=== PATIENT | female | born 1965 | race African-American/Black ===

== ENCOUNTER 2016-10-21 23:05 | Emergency (ER) | payer MEDICAID ==
--- NOTE | 2016-10-21 23:20 | NUR ---
CALLED FOR TRIAGE; NO ANSWER
--- NOTE | 2016-10-21 23:46 | NUR ---
CALLED FOR TRIAGE AND STATES "I HAVE AN APPOINTMENT WITH MY DOCTOR IN THE MORNING SO I WILL GO OVER THERE AND SEE HIM".
== END 2016-10-21 23:47 | disposition left against medical advice (07) ==
LOC: ER 23:05
DX: Z53.21 Procedure and treatment not carried out due to patient leaving prior to being seen by health care provider (principal)

== ENCOUNTER 2016-10-31 02:04 | Emergency (ER) | payer MEDICAID ==
--- NOTE | 2016-10-31 02:21 | NUR ---
NOT IN LOBBY FOR TRIAGE.
--- NOTE | 2016-10-31 02:31 | NUR ---
STILL NOT IN LOBBY
--- NOTE | 2016-10-31 02:51 | NUR ---
CALLED AGAIN; NOT IN LOBBY
--- NOTE | 2016-10-31 02:56 | NUR ---
PT NOT IN LOBBY FOR TRIAGE.
--- NOTE | 2016-10-31 03:07 | NUR ---
CALLED AGAIN AND STILL NOT IN LOBBY.
--- NOTE | 2016-10-31 03:18 | NUR ---
PT NOT IN LOBBY
--- NOTE | 2016-10-31 03:30 | NUR ---
STILL NOT IN LOBBY.
== END 2016-10-31 03:37 | disposition left against medical advice (07) ==
LOC: ER 02:07
DX: Z53.21 Procedure and treatment not carried out due to patient leaving prior to being seen by health care provider (principal)

== ENCOUNTER 2016-12-03 13:26 | Emergency (ER) | payer MEDICAID ==
[~2016-12-03] VITALS: Ht 157.5 cm; Wt 74.8 kg
--- NOTE | 2016-12-03 13:50 | NUR ---
PT CAME IN FOR SOB AND MULTIPLE COMPLAINTS. NOTED ANXIOUS. VSS. 99% SAT ON RA SEEN BY MD FOR EVAL. SAFETY AND COMFORT MEASURES PROVIDED. WILL MONITOR.
--- NOTE | 2016-12-03 14:05 | NUR ---
[employer] DISABILITY TEACHER AT FOR BLOOD DRAW.
--- NOTE | 2016-12-03 14:10 | NUR ---
PT STATES MULTIPLE COMPLAINTS/SYMPTOMS AND DEMANDS EXPLANATIONS AND TO BE DIAGNOSED ON THE SPOT. REPORTS THAT "SOMETHING INSIDE OF HER IS CRAWLING AND BLOCKING HER AIRWAY". VSS- SATING AT 100% ROOM AIR. NAD NOTED. MD MADE AWARE OF THE COMPLAINTS. SAFETY MEASURES MAINTAINED.
[2016-12-03 14:19] LABS: BASOPHILS % (AUTO) 0.7 % (0.0-2.0); EOSINOPHILS % (AUTO) 0.9 % (0.0-6.0); HEMATOCRIT 41 % (33-45); HEMOGLOBIN 13.4 g/dL (11.5-14.8); LYMPHOCYTES # (AUTO) 1.7 /CMM (0.8-4.8); LYMPHOCYTES % (AUTO) 42.4 % (20.0-44.0); MEAN CORPUSCULAR HEMOGLOBIN 31 PG (26.0-33.0); MEAN CORPUSCULAR HGB CONC 33 g/dl (31.0-36.0); MEAN CORPUSCULAR VOLUME 92 fL (82-100); MONOCYTES # (AUTO) 0.3 /CMM (0.1-1.30); MONOCYTES % (AUTO) 7.2 % (2.0-12.0); NEUTROPHILS # (AUTO) 1.9 /CMM (1.8-8.9); NEUTROPHILS % (AUTO) 48.8 % (43.0-81.0); PLATELET COUNT (AUTO) 237 /CMM (150-450); RDW COEFFICIENT OF VARIATION 14.4 (11.5-15.0); RED BLOOD CELL COUNT(AUTO) 4.39 MIL/uL (4.0-5.2); WHITE BLOOD COUNT (AUTO) 3.9 K/uL (4.3-11.0)
[2016-12-03 14:29] LABS: CALCIUM, SERUM 8.7 mg/dL (8.5-10.1); CARBON DIOXIDE 27 mmol/L (21-32); CHLORIDE 104 mmol/L (98-107); GLUCOSE 91 mg/dL (74-106); POTASSIUM 3.8 mmol/L (3.5-5.1); SODIUM SERUM 140 mmol/L (136-145); UREA NITROGEN, BLOOD 9 mg/dL (7-18)
--- NOTE | 2016-12-03 14:30 | NUR ---
PT REFUSED CT SCAN.
[2016-12-03 14:33] LABS: INR 1.03 (0.87-1.13); PROTHROMBIN TIME 10.7 SECS (9.5-12.7)
[2016-12-03 14:35] LABS: ALANINE AMINOTRANSFERASE 18 U/L (12-78); ALBUMIN 3.7 g/dL (3.4-5.0); ALKALINE PHOSPHATASE 83 U/L (46-116); ASPARTATE AMINOTRANSFERASE 15 U/L (15-37); BILIRUBIN,DIRECT 0.1 mg/dL (0.0-0.2); BILIRUBIN,TOTAL 0.3 mg/dL (0.2-1.0); LIPASE 67 U/L (73-393)
--- NOTE | 2016-12-03 14:36 | NUR ---
PT REFUSING CT SCAN, JULIO CÉSAR BILLY IS AWARE.
[2016-12-03 14:37] LABS: TROPONIN I < 0.017 ng/mL (0.00-0.056)
--- NOTE | 2016-12-03 14:40 | NUR ---
AT BS. PT THEN AGREES FOR CT SCAN.
--- NOTE | 2016-12-03 14:45 | NUR ---
WEIGHT CLERK REPORTED PT DEMANDS EXPLANATIONS/ ANSWER TO ALL RADIATION EXPOSURE QUESTIONS AND DEMANDS TO TALK TO ALL RADIOLOGY PERSONEL ABOUT IT- AGAIN REFUSES CT SCAN. MADE AWARE.
--- NOTE | 2016-12-03 15:05 | NUR ---
PT PULLED ME BY MY HAIR AT THE NURSES STATION TRYING TO GET MY ATTENTION WITNESSED BY OTHER ER STAFF. PT IMMEDIATELY WENT BACK TO HER ROOM AFTER. SPOKE WITH THE PT REGARDING HER ACTION AND SHE DENIED IT. CHARGE NURSE AND MD MADE AWARE.
--- NOTE | 2016-12-03 15:06 | NUR ---
PATIENT WENT OUT OF ROOM 1 AND 2 AND SUDDENLY PULLED OTHER RN (WENCESLAO TUCKER) HAIR FROM HER BACK. WITNESSED. NOTIFIED CHARGE NURSE.
--- NOTE | 2016-12-03 15:06 | NUR ---
DR. THOMPSON AT TO TALK TO PT. PER MD PT IS STILL UNDECISIVE ABOUT CT. NO FURTHER ORDERS.
[2016-12-03 15:10] VITALS: BP 124/65
--- NOTE | 2016-12-03 15:34 | NUR ---
Patient eloped from facility. ER MD notified.
== END 2016-12-03 15:45 | disposition left against medical advice (07) ==
LOC: ER 13:28
DX: R42 Dizziness and giddiness (principal); K21.9 Gastro-esophageal reflux disease without esophagitis
CPT/HCPCS: 36415; 71010; 80048; 80076; 83690; 84484; 85025; 85730; 93005; 99285; A4606; Z7610

== ENCOUNTER 2018-01-07 21:41 | Emergency (ER) | payer MEDICAID ==
[~2018-01-07] VITALS: Ht 162.6 cm; Wt 83.5 kg
[2018-01-07 22:08] VITALS: BP 132/91
== END 2018-01-07 22:58 | disposition home or self-care (01) ==
LOC: ER 21:48
DX: S50.862A Insect bite (nonvenomous) of left forearm, initial encounter (principal); S60.461A Insect bite (nonvenomous) of left index finger, initial encounter; L03.114 Cellulitis of left upper limb; K21.9 Gastro-esophageal reflux disease without esophagitis; W57.XXXA Bitten or stung by nonvenomous insect and other nonvenomous arthropods, initial encounter; Y93.89 Activity, other specified; Y92.89 Other specified places as the place of occurrence of the external cause; Y99.8 Other external cause status
CPT/HCPCS: A4606; Z7610

== ENCOUNTER 2020-04-29 15:02 | Emergency (ER) | payer MEDICAID ==
[~2020-04-29] VITALS: Ht 162.6 cm; Wt 72.6 kg
[2020-04-29 15:37] VITALS: BP 147/96
[2020-04-29] MEDS ORDERED: KETOROLAC TROMETHAMINE INJ 30 MG/ML VIAL ONE (15:55)
[2020-04-29] MEDS ORDERED: KETOROLAC TROMETHAMINE INJ 60 MG/2 ML VIAL IM ONE (16:00)
[2020-04-29] MEDS ORDERED: NAPR-1009 PO (16:12)
--- NOTE | 2020-04-29 16:34 | NUR ---
Patient discharged to home in stable condition. Written and verbal after care instructions given. Patient verbalizes understanding of instruction.
== END 2020-04-29 16:35 | disposition home or self-care (01) ==
LOC: ER 15:04
DX: R25.2 Cramp and spasm (principal); K21.9 Gastro-esophageal reflux disease without esophagitis; Z79.899 Other long term (current) drug therapy
CPT/HCPCS: 99282; J1885

== ENCOUNTER 2020-10-24 21:55 | Emergency (ER) | payer MEDICAID ==
[~2020-10-24] VITALS: Ht 162.6 cm; Wt 72.6 kg
[~2020-10-24 21:55] MED LIST: NAPR-1009 PO
[2020-10-24 22:12] VITALS: BP 115/73
[2020-10-24] MEDS ORDERED: BENZ-13 PO (22:46)
[2020-10-24] MEDS ORDERED: GUAIFENESIN/D-METHORPHAN HB 5 ML UDC ONE (22:52)
[2020-10-24] MEDS ORDERED: GUAIFENESIN/D-METHORPHAN HB 5 ML UDC PO ONE (23:00)
--- NOTE | 2020-10-24 23:05 | NUR ---
Patient discharged to home in stable condition. Written and verbal after care instructions given. Patient verbalizes understanding of instruction. Pt ambulatory with a steady gait
== END 2020-10-24 23:05 | disposition home or self-care (01) ==
LOC: ER 21:57
DX: U07.1 COVID-19 (principal); K21.9 Gastro-esophageal reflux disease without esophagitis

== ENCOUNTER 2022-03-30 10:48 | Emergency (ER) | payer MEDICAID ==
[~2022-03-30] VITALS: Ht 162.6 cm; Wt 72.6 kg
[~2022-03-30 10:48] MED LIST changes: +BENZ-13 PO
[2022-03-30] MEDS ORDERED: OMEPRAZOLE 20 MG CAPSULE.DR PO SCH (11:30)
--- NOTE | 2022-03-30 11:38 | NUR ---
NO OMEPRAZOLE PER PHARMACY; PROTONIX AVAILABLE.
--- NOTE | 2022-03-30 11:40 | NUR ---
PER MD, OK TO CHANGE OMEPRAZOLE TO PROTONIX. ORDER FOR PROTONIX 40MG PO READ BACK AND VERIFIED.
[2022-03-30] MEDS ORDERED: PANTOPRAZOLE 40 MG TABLET.DR PO ONE ×2 (11:42→12:00)
--- NOTE | 2022-03-30 11:43 | NUR ---
established iv line left ac 20g ,
--- NOTE | 2022-03-30 11:44 | NUR ---
PROTONIX PO GIVEN INDICATED, ELLIE WELL
--- NOTE | 2022-03-30 11:44 | NUR ---
PHLEB AT BEDSIDE FOR BLOOD DRAW
--- NOTE | 2022-03-30 11:44 | NUR ---
TECH AT BEDSIDE FOR EKG
[2022-03-30 11:56] LABS: BASOPHILS % (AUTO) 0.6 % (0.0-2.0); EOSINOPHILS % (AUTO) 0.7 % (0.0-6.0); HEMATOCRIT 41 % (33-45); HEMOGLOBIN 13.3 g/dL (11.5-14.8); LYMPHOCYTES # (AUTO) 1.7 K/uL (0.8-4.8); LYMPHOCYTES % (AUTO) 30.7 % (20.0-44.0); MEAN CORPUSCULAR HGB CONC 33 g/dl (31.0-36.0); MEAN CORPUSCULAR VOLUME 93 fL (82-100); MONOCYTES # (AUTO) 0.5 K/uL (0.1-1.30); MONOCYTES % (AUTO) 8.6 % (2.0-12.0); NEUTROPHILS # (AUTO) 3.2 K/uL (1.8-8.9); NEUTROPHILS % (AUTO) 59.4 % (43.0-81.0); PLATELET COUNT (AUTO) 261 K/uL (150-450); RED BLOOD CELL COUNT(AUTO) 4.38 MIL/uL (4.0-5.2); WHITE BLOOD COUNT (AUTO) 5.5 K/uL (4.3-11.0)
[2022-03-30 12:19] LABS: ALANINE AMINOTRANSFERASE 23 U/L (12-78); ALBUMIN 3.7 g/dL (3.4-5.0); ALKALINE PHOSPHATASE 90 U/L (46-116); ASPARTATE AMINOTRANSFERASE 18 U/L (15-37); BILIRUBIN,DIRECT 0.1 mg/dL (0.0-0.2); BILIRUBIN,TOTAL 0.2 mg/dL (0.2-1.0); CALCIUM, SERUM 9.3 mg/dL (8.5-10.1); CARBON DIOXIDE 29 mmol/L (21-32); CHLORIDE 105 mmol/L (98-107); GLUCOSE 154 mg/dL (74-106); POTASSIUM 3.7 mmol/L (3.5-5.1); SODIUM SERUM 137 mmol/L (136-145); TOTAL PROTEIN, SERUM 7.4 g/dL (6.4-8.2); UREA NITROGEN, BLOOD 18 mg/dL (7-18)
[2022-03-30] MEDS ORDERED: OMEP20CA15 PO (13:04)
--- NOTE | 2022-03-30 13:09 | NUR ---
IV removed. Catheter intact and site benign. Pressure and 4x4 applied to site. No bleeding noted.
[2022-03-30 13:12] VITALS: BP 130/66
--- NOTE | 2022-03-30 13:12 | NUR ---
Patient discharged to home in stable condition. Written and verbal after care instructions given. Patient verbalizes understanding of instruction.
== END 2022-03-30 13:21 | disposition home or self-care (01) ==
LOC: ER 10:54
DX: K21.9 Gastro-esophageal reflux disease without esophagitis (principal); Z79.899 Other long term (current) drug therapy
CPT/HCPCS: 36415; 71045-TC; 80048-TC; 80076-TC; 84484-TC; 85025-TC

== ENCOUNTER 2023-03-02 12:26 | Emergency (ER) | payer BC, MEDICAID ==
[~2023-03-02] VITALS: Ht 162.6 cm; Wt 79.4 kg
[~2023-03-02 12:26] MED LIST changes: +OMEP20CA15 PO
[2023-03-02 13:56] VITALS: BP 122/77; TEMP 98.1; O2SAT 98
== END 2023-03-02 13:46 | disposition home or self-care (01) ==
LOC: ER 12:36
DX: J06.9 Acute upper respiratory infection, unspecified (principal); K21.9 Gastro-esophageal reflux disease without esophagitis